=== PATIENT | female | born 2000 | race Caucasian/White ===

== ENCOUNTER 2025-02-23 23:59 | Emergency (ER) | payer OTHER, SELFPAY ==
[2025-02-24] VITALS: BP 142/96
--- NOTE | 2025-02-24 01:20 | ED.GENMED ---
History of Present Illness
General
Chief Complaint: Ear Problem
Source: patient
Exam Limitations: none
Time Seen by Provider: 02/24/25 01:20
Nursing documentation reviewed up to this point in time: agreed with
History of Present Illness
History of Present Illness:
24-year-old female with no past medical history presents to the ER today with concerns of bilateral ear pain, right sided greater than left. Reports that this started when she had a flight from [place] and had persistent fullness in her ears.
Initially seemed to get a little bit better but then she felt pain in her right ear which persisted. She also had associated coughing, nasal congestion, and runny nose. She went to urgent care and was prescribed an unknown antibiotic which she
took 1 tablet twice daily for 10 days which did not help. She also tried [id number] eardrops which did not help in her right ear. She subsequently obtained neomycin drops from a [place] pharmacy which she has been using for the past 3 days
which has not helped. She notes some mild drainage from her ear. She denies any fevers or chills. Denies any swelling behind the ear. She has taken ibuprofen which does help with her pain. She notes that she was swimming a lot recently. She
denies any chest pain, shortness of breath, abdominal pain. She denies any neck pain or trouble swallowing.
Review of Systems
Review of Systems
All Other Systems: ROS reviewed and negative except as documented in HPI and ROS
Phy Exam
Physical Exam
Physical Exam:
General: Patient is well appearing and in no acute distress; non-toxic
Skin: Warm and dry, no rashes or lesions
Head: Normocephalic, atraumatic
Ears: Left ear--white foreign body removed, no redness or swelling of EOC, TM unremarkable. Right ear shows swelling and erythema of the external auditory canal
No mastoid tenderness or swelling bilaterally
Eyes: Sclera non-icteric. EOMs intact.
Throat: No pharyngeal erythema, uvula midline
Neck: No cervical lymphadenopathy, supple non-tender
Cardiac: Regular rate and rhythm, no murmurs
Peripheral Vascular: No lower extremity swelling or edema
Pulm: Normal respiratory effort, no wheezes, rales, or rhonchi
Neuro: CN II-XII intact, no focal neurologic deficits.
Psychiatric: Appropriate mood and affect.
Course
Orders/Labs/Results
Orders:
Orders
02/24/25 01:30
Ibuprofen [Motrin] 600 mg PO NOW STA
02/24/25 01:53
COVID-19 Antigen Urgent
Source: Nasal Swab
Complete Blood Count/With Diff Urgent
Comprehensive Metabolic Panel Urgent
Influenza A+B Rapid Molecular Urgent
CHEPE Source: Nasal Swab
Specimen Description:
02/24/25 03:19
Acetaminophen [Tylenol] 1,000 mg PO NOW STA
Abnormal Lab Results
02/24/25
01:53
WBC 13.7 H 10^3/uL
(4.8-10.8)
MPV 13.3 H fL
(7.4-10.4)
Abs Immat Gran (auto) 0.1 H 10^3/uL
(0-0.05)
Absolute Neuts (auto) 9.1 H 10^3/uL
(1.4-6.5)
Absolute Monos (auto) 0.9 H 10^3/uL
(0.1-0.6)
Chloride 111 H mmol/L
(98-107)
Carbon Dioxide 21 L mmol/L
(22-30)
BUN 18 H mg/dl
(7-17)
Glucose 129 H mg/dl
(70-99)
ALT 60 H U/L
(0-35)
02/24/25 01:53
02/24/25 01:53
Vital Signs
Initial and Last Documented VS:
Initial Vital Signs
Temp Pulse Resp BP Pulse Ox
98 F 104 20 142/96 98
02/24/25 00:00 02/24/25 00:00 02/24/25 00:00 02/24/25 00:00 02/24/25 00:00
Last Documented Vital Signs
Temp Pulse Resp BP Pulse Ox
98 F 104 20 142/96 98
02/24/25 00:00 02/24/25 00:00 02/24/25 00:00 02/24/25 00:00 02/24/25 01:30
MDM/Problems Addressed
Differential Diagnosis Includes:
ddx include otitis media, otitis externa, malignant otitis externa, sinusitis, viral syndrome
MDM/Problems Addressed:
24-year-old female presents to the ER today with concerns of bilateral ear pain. She reports that this started in the beginning of February and has persisted. She originally took an antibiotic orally which she is unsure of, I suspect this was
Augmentin based on her description of it. She also tried drops neomycin polymyxin which did not seem to help. On physical exam, she is afebrile, well-appearing, she does have swelling and erythema noted to the right external canal with minimal
white debris and minimal drainage consistent with otitis externa. No mastoid tenderness or swelling. Considering patient was already on neomycin eardrop for short period of time, will trial Ciprodex drops. Considering length and persistence of
symptoms as well as elevated fasting glucose, will also start her on oral Cipro. Patient referred for ENT, discussed strict return precautions, patient stable for discharge.
Chronic conditions affecting care:
n/a
*Pulse Oximetry
SaO2: 98
Patient hypoxic: no
*Critical Care Note
Total Time (30-74mins, 75-104mins- exclusive of procedures): Not Applicable
ED Attending Note
-
Portions of this chart may have been created with voice recognition software.� Occasional wrong word or��sound alike� substitutions may have occurred due to the inherent limitations of voice recognition software.
Discharge Plan
Departure
Patient Disposition: Home (Routine Discharge)
Date of Disposition: 02/24/25
Time of Disposition: 03:16
Patient with high blood pressure during this ER visit?: Yes
Condition: Good
Discharge Problem:
Acute Otitis Externa, Foreign body of ear, left
Instructions: Foreign Body in Ear (DC), Outer Ear Infection (DC), BLOOD PRESSURE
Prescriptions:
New
ciprofloxacin-dexamethasone 0.3-0.1 % drops,suspension
4 drp otic (ear) BID 10 Days Qty: 7.5 0RF
ciprofloxacin HCl 500 mg tablet
500 mg PO BID 5 Days Qty: 10 0RF
Referrals:
Syeda Middleton CRNP [Family Provider, General]
Samuel Keith MD [Active, ENT] - Call in 1-3 days for appt
Activity Restrictions/Additional Instructions:
Please call the attached number to schedule appointment to see ENT. Please instill 4 drops into the right ear twice daily for 10 days. You can also start taking oral antibiotic sent to your pharmacy, you can take one tablet twice daily for for 7
days.
PLEASE RETURN TO ER SHOULD YOU DEVELOP ANY WORSENING SYMPTOMS, FEVERS, SWELLING OF THE EXTERNAL EAR OR SWELLING BEHIND THE EAR, FACIAL RASH OR SWELLING, INABILITY TOLERATE ORAL INTAKE, TROUBLE SWALLOWING, OR ANY OTHER SIGNS OR SYMPTOMS WORRISOME TO
YOU.
Interventions
Interventions:
*Risk Screen - Suicide Last Done: 02/24/25 00:56
*General Assessment Last Done: 02/24/25 00:56
*Neglect/Abuse Screening Last Done: 02/24/25 00:56
*ED- Fall Risk Assessment Last Done: 02/24/25 00:56
*ED COVID-19 Vaccine History Last Done: 02/24/25 00:56
*Nursing Disposition Last Done: 02/24/25 03:26
Discharge Date and Time
Discharge Date/Time: 02/24/25 03:27
Print Language: ICELANDIC
[2025-02-24] MEDS: MOTRIN 600 MG PO (01:45)
[2025-02-24 02:22] LABS: Hematocrit 40.7 % (37.0-47.0); Hemoglobin 13.5 g/dL (12.0-16.0); Mean Corp Hgb Conc. 33.2 g/dL (33.0-37.0); Mean Corpuscular Volume 93.6 fL (81.0-99.0); Nucleated Red Blood Cells % 0 %; Platelet Count 211 10^3/uL (130-400); Red Cell Dist. Width 12.4 % (11.5-14.5)
[2025-02-24 02:27] LABS: ALT (SGPT) 60 U/L (0-35); AST (SGOT) 35 U/L (14-36); Albumin 4.8 g/dl (3.5-5.0); Alkaline Phosphatase 67 U/L (38-126); Blood Urea Nitrogen 18 mg/dl (7-17); Calcium 9.9 mg/dl (8.4-10.2); Carbon Dioxide 21 mmol/L (22-30); Chloride 111 mmol/L (98-107); Glucose 129 mg/dl (70-99); Potassium 4.4 mmol/L (3.5-5.1); Sodium 141 mmol/L (135-145); Total Protein 7.4 g/dl (6.3-8.2); eGFR > 60.00
[2025-02-24 02:31] LABS: COVID-19 Antigen Negative (Negative)
[2025-02-24] MEDS: TYLENOL 1000 MG PO (03:21)
== END 2025-02-24 03:27 | disposition home or self-care (01) ==
LOC: EMR 23:59
PROVIDERS: Physician Assistant; EMERGENCY PHYSICIAN Emergency Medicine; FAMILY PHYSICIAN Nurse Practitioner Adult Health
DX: H60.91 Unspecified otitis externa, right ear (principal); T16.2XXA Foreign body in left ear, initial encounter; W44.9XXA Unspecified foreign body entering into or through a natural orifice, initial encounter
CPT/HCPCS: 99283; 80053; 85025; 87502; 87811